=== PATIENT | male | born 1970 | race American Indian/Alaskan Native ===

== ENCOUNTER 2018-05-01 20:17 | Emergency (ER) | payer BC, OTHER ==
[2018-05-01 20:18] VITALS: BMI 21.7
[2018-05-01 20:32] VITALS: BP 101/70; PULSE 91; RESP 20; TEMP 98.6; O2SAT 98
--- NOTE | 2018-05-01 20:58 | C.PDOC ---
History Of Present Illness patient c/o irritation and foreign body sensation since earlier today. he states something tran tin his eye but he is not sure what it was. he now has tearing and pain. he denies wearing contacts. Time Seen by Provider: 05/01/18 20:34 Chief Complaint (Nursing): ENT Problem Past Medical History Vital Signs: Last Vital Signs Temp 98.6 F 05/01/18 20:25 Pulse 91 H 05/01/18 20:25 Resp 20 05/01/18 20:25 BP 101/70 05/01/18 20:25 Pulse Ox 98 05/01/18 20:25 - Medical History PMH: Asthma Denies: Depression Family History: States: Unknown Family Hx - Social History Hx Tobacco Use: Yes Hx Alcohol Use: Yes (social) Hx Substance Use: No Review Of Systems Constitutional: Negative for: Fever, Chills Eyes: Positive for: Pain, Conjunctivae Inflammation, Redness. Negative for: Eyelid Inflammation ENT: Negative for: Ear Pain, Ear Discharge Skin: Negative for: Rash Neurological: Negative for: Weakness, Numbness, Confusion, Headache Physical Exam - Physical Exam Appears: In Acute Distress (blinking often) Skin: Normal Color, Warm Head: Atraumatic, Normacephalic Eye(s): left: Other (excess tearing, dye uptake to lateral aspect of cornea, no foreign body seen under lids) Neck: Normal, Normal ROM Chest: Symmetrical Neurological/Psych: Oriented x3, Normal Speech, Normal Cognition, Normal Motor, Normal Sensation ED Course And Treatment O2 Sat by Pulse Oximetry: 98 Progress Note: patient reports symptomatic relief after tetracaine instilled. Disposition Counseled Patient/Family Regarding: Diagnosis, Need For Followup - Disposition Disposition: HOME/ ROUTINE Disposition Time: 20:55 Condition: STABLE Prescriptions: Tobramycin 0.3% [Tobrex 0.3% Ophth Soln] 5 drop OS QID #1 bottle Instructions: Corneal Abrasion (DC) Forms: General Discharge Instructions, [facility] ([place]), Work Excuse - Clinical Impression Clinical Impression: Cornea abrasion
== END 2018-05-01 21:16 | disposition home or self-care (01) ==
LOC: C.ER 20:17
DX: S05.02XA Injury of conjunctiva and corneal abrasion without foreign body, left eye, initial encounter (principal); X58.XXXA Exposure to other specified factors, initial encounter